=== PATIENT | male | born 1960 | race Caucasian/White ===

== ENCOUNTER 2017-03-20 13:15 | Inpatient (IN) | payer BC ==
[~2017-03-20] VITALS: Ht 170.2 cm; Wt 78.0 kg
[2017-03-20 13:34] VITALS: BP_SYST 121
[2017-03-20 14:07] LABS: BASOPHILS # (AUTO) 0.3 K/uL (0.0-0.2); BASOPHILS % (AUTO) 1.9 % (0.0-2.0); HEMATOCRIT 42.2 % (36-54); HEMOGLOBIN 14.1 g/dL (14.0-18.0); LYMPHOCYTES # (AUTO) 1.4 K/uL (1.0-5.5); LYMPHOCYTES % (AUTO) 9.7 % (20.5-51.5); MEAN CORPUSCULAR HEMOGLOBIN 29 pg (27-31); MEAN CORPUSCULAR HGB CONC 33 % (32-36); MEAN CORPUSCULAR VOLUME 86 fL (79.0-98.0); MONOCYTES # (AUTO) 0.6 K/uL (0.0-1.0); MONOCYTES % (AUTO) 4.1 % (1.7-9.3); NEUTROPHILS # (AUTO) 11.8 K/uL (1.8-7.7); NEUTROPHILS % (AUTO) 84.3 % (40.0-70.0); PLATELET COUNT (AUTO) 152 K/uL (130-430); RED BLOOD CELL COUNT(AUTO) 4.88 MIL/uL (4.2-6.2); RED CELL DISTRIBUTION WIDTH 13.5 % (9.0-15.0); WHITE BLOOD COUNT (AUTO) 14.1 K/uL (4.8-10.8)
[2017-03-20 14:20] LABS: CALCIUM 8.1 mg/dL (8.4-11.0); CREATININE 1.31 mg/dL (0.55-1.30); POTASSIUM 3.5 mmol/L (3.5-5.1)
[2017-03-20 14:24] LABS: ALBUMIN 3.6 g/dL (3.4-4.8); TOTAL BILIRUBIN 0.6 mg/dL (0.0-1.0); TOTAL PROTEIN, SERUM 7.6 g/dL (6.4-8.3)
--- NOTE | 2017-03-20 14:50 | NUR ---
Note araceli in EDM - 03/20/17 at 1817 by ABHI Patient will be admitted to care of . Admitted to TELEMETERY unit. Will go to room 128A. Belongings list completed. Summary report printed. Report will be given at bedside.
[2017-03-20] MEDS ORDERED: DEXAMETHASONE SOD PHOSPHATE 10 MG/ML VIAL IVP ONE (15:15)
[2017-03-20] MEDS ORDERED: LOPERAMIDE HCL 2 MG CAPSULE PO ONE (15:15)
[2017-03-20] MEDS ORDERED: metroNIDAZOLE 500 mg/NS 100 ML IV ONE (15:15)
[2017-03-20] MEDS ORDERED: NACL 0.9% 1,000 ML IV ONE ×2 (15:30→17:30)
--- NOTE | 2017-03-20 15:30 | NUR ---
RECEIVED PT IN BED 1, ASSUMED CARE.
--- NOTE | 2017-03-20 15:32 | NUR ---
ER at bedside examining patient.
--- NOTE | 2017-03-20 15:45 | NUR ---
# 20 gauge angiocath placed to RA. Use of asceptic technique. Opsite placed over site. Blood return noted. Flushed with 10 cc of normal saline. No evidence of infiltration noted. PT MEDICATED TOLERATED WELL
--- NOTE | 2017-03-20 16:17 | NUR ---
ADMISSION NOTE Received patient from ER via juana, received report from Lonnie ROCHE. Patient admitted with diagnosis of Colitis . Patient oriented to hospital routine, call light, toileting and safety-patient verbalized understanding.
--- NOTE | 2017-03-20 16:30 | NUR ---
Patient will be admitted to care of . Admitted to telemetry unit. Will go to room 128a. Belongings list completed. Summary report printed. Report will be given at bedside.
[2017-03-20 16:37] VITALS: BP_SYST 121
--- NOTE | 2017-03-20 16:59 | NUR ---
PAGEJohn SPOKE WITH ANASTASIYA TO PAGE DR STEPHENSON PER RN SENA.
[2017-03-20] MEDS ORDERED: BISACODYL 5 MG TABLET.DR (DULCOLAX) PO ONE (17:00)
--- NOTE | 2017-03-20 17:00 | NUR ---
INITIAL NOTE Received pt in bed, no s/s of distress or sob noted, pt has no c/o pain at this time, pt in stable condition, pt aaox4, verbal. Bed at lowest position, call light within reach, will continue to monitor pt for any changes, fall precautions in place.
[2017-03-20] MEDS ORDERED: ONDANSETRON HCL 4 MG/2 ML VIAL IVP PRN (17:30)
--- NOTE | 2017-03-20 17:47 | NUR ---
MD CURRY SPOKE WITH SABINA TO PAGE DR STEPHENSON PER KALEY JARRELL
[2017-03-20] MEDS ORDERED: GOLYTELY / COLYTE SOLUTION 4 LITERS PO ONE (18:00)
--- NOTE | 2017-03-20 18:28 | NUR ---
CLOSING NOTE Pt in bed, no s/s of distress or sob noted, pt has no c/o pain at this time, pt in stable condition, pt aaox4, verbal. Bed at lowest position, call light within reach, will endorse care of pt to incoming nurse, fall precautions in place. Sent stool to lab for tests as ordered, started golytely as ordered.
[2017-03-20 20:00] VITALS: BP_SYST 134
--- NOTE | 2017-03-20 20:00 | NUR ---
PM Shift Assessment Received patient lying in bed, AAO x4, no acute distress noted, is at the bedside. Assessment complete, no complain of pain at this time. Patient is drinking GoLYTELY and tolerating well. IV noted to right AC, IV fluids bolus infusing well, no redness or swelling noted to IV sight. Plan of care discussed with patient and at bedside, they verbalized understanding. Patient is verbally able to make needs known and encouraged to do so. Call light is within reach, all fall and safety precautions in place, will continue to monitor for change in patient status.
[2017-03-20 21:15] VITALS: BP_SYST 145
[2017-03-20] MEDS: metroNIDAZOLE 500 mg/NS 100 ML IV SCH (21:33)
--- NOTE | 2017-03-20 21:50 | NUR ---
Consult was called Reason For Consultation: GI Was person notified: Kelley Was consult called: yes Consulting Physician: DR. ROCK caponizer Supervisor Contact Lens Specialty: Supervisor Contact Lens
--- NOTE | 2017-03-20 22:18 | NUR ---
RN Rounds Patient is resting quietly in bed, no acute distress noted or complain of pain at this time. Tolerating GoLYTELY well, stated he has had a few bowel movements. Scheduled IV antibiotics administered and infusing well. Encouraged to call with all needs. Call light is within reach, all fall and safety precautions in place, will continue to monitor.
[2017-03-21 00:02] VITALS: BP_SYST 143
--- NOTE | 2017-03-21 00:27 | NUR ---
RN Rounds Patient is resting quietly in bed, no acute distress noted or complain of pain at this time, vital sings stable, family members at the bedside. Patient noted ambulatory with steady gait to restroom and safely back to bed. Reminded of NPO for colonoscopy in the morning, he verbalized understanding. Encouraged to call with all needs. Call light is within reach, all fall and safety precautions in place, will continue to monitor.
--- NOTE | 2017-03-21 02:25 | NUR ---
RN Rounds Patient is resting quietly in bed, no acute distress noted, daughter is at the bedside. Reminded to call for assistance if he needs to get out of bed, he verbalized understanding. No other needs at this time. Call light is within reach, all fall and safety precautions in place, will continue to monitor.
[2017-03-21 04:14] VITALS: BP_SYST 143
--- NOTE | 2017-03-21 04:32 | NUR ---
RN Rounds Patient is resting quietly in bed, no acute distress noted or complain of pain at this time. Family members at the bedside. Encouraged patient to call with all needs, he verbalized understanding. Call light is within reach, all fall and safety precautions in place, will continue to monitor.
[2017-03-21] MEDS: metroNIDAZOLE 500 mg/NS 100 ML IV SCH ×3 (05:28→22:04)
--- NOTE | 2017-03-21 06:39 | NUR ---
Closing Notes Patient is resting quietly in bed, no acute distress noted. Tap water enema done x1, patient tolerated well and is now clear. IV antibiotics infusing well as ordered per MD. Patient is stable, all needs met throughout shift. Will continue to monitor until endorsed to AM nurse at bedside.
[2017-03-21 08:00] VITALS: BP_SYST 130
--- NOTE | 2017-03-21 08:00 | NUR ---
am notes Pt in bed awake, alert and oriented. denies any pain or discomfort. ambulate to the bathroom with steady gait. keep npo for colonoscopy today. call light in reach. enc. to call for help as needed.
[2017-03-21] MEDS: PANTOPRAZOLE SODIUM 40 MG/VIAL (PROTONIX) IVP SCH (08:41)
--- NOTE | 2017-03-21 10:30 | NUR ---
ROUNDS IN BED RESTING. DENIES ANY PAIN OR DISCOMFORT. KEEP NPO. STABLE.
[2017-03-21 10:43] LABS: BASOPHILS % (AUTO) 0.2 % (0.0-2.0); HEMATOCRIT 38.9 % (36-54); LYMPHOCYTES # (AUTO) 0.6 K/uL (1.0-5.5); LYMPHOCYTES % (AUTO) 4.4 % (20.5-51.5); MEAN CORPUSCULAR HEMOGLOBIN 29 pg (27-31); MEAN CORPUSCULAR HGB CONC 34 % (32-36); MEAN CORPUSCULAR VOLUME 86 fL (79.0-98.0); MONOCYTES # (AUTO) 0.4 K/uL (0.0-1.0); MONOCYTES % (AUTO) 3.4 % (1.7-9.3); NEUTROPHILS # (AUTO) 12.1 K/uL (1.8-7.7); PLATELET COUNT (AUTO) 141 K/uL (130-430); RED BLOOD CELL COUNT(AUTO) 4.49 MIL/uL (4.2-6.2); RED CELL DISTRIBUTION WIDTH 13.5 % (9.0-15.0); WHITE BLOOD COUNT (AUTO) 13.1 K/uL (4.8-10.8)
[2017-03-21 10:47] LABS: CALCIUM 8.1 mg/dL (8.4-11.0); CREATININE 0.96 mg/dL (0.55-1.30); POTASSIUM 3.3 mmol/L (3.5-5.1)
[2017-03-21 12:00] VITALS: BP_SYST 133
[2017-03-21] MEDS ORDERED: MIDAZOLAM HCL 5 MG/5 ML VIAL ONE (12:32)
[2017-03-21] MEDS ORDERED: SIMETHICONE 40 MG/0.6 ML ML ONE (12:32)
[2017-03-21] MEDS ORDERED: MEPERIDINE HCL/PF 100 MG/ML AMP ONE (12:32)
[2017-03-21] MEDS: MIDAZOLAM HCL 5 MG/5 ML VIAL ONE ×4 (12:51→13:00)
--- NOTE | 2017-03-21 13:51 | NUR ---
notes Pt back from gi lab, pt awake alert and oriented. family at bedside. no distress noted.
--- NOTE | 2017-03-21 14:50 | NUR ---
Discharge planning Discussed plan of care with TAHIR Bejarano @ [facility], , who states that patient is OON. Bia said she has spoken directly with Dr Kuhn and plan is for DC home tomorrow. If patient needs continued inpatient stay beyond tomorrow then Insurance will choose to transfer in-network. Met with patient at bedside and updated him with plan of care. Patient verbalized understanding.
[2017-03-21 16:00] VITALS: BP_SYST 139
--- NOTE | 2017-03-21 16:55 | NUR ---
LABS CALLED AND SPOKE TO DR. STEPHENSON. MADE AWARE OF LABS RESULT. NEW ORDERS RECEIVED.
[2017-03-21] MEDS ORDERED: POTASSIUM CHLORIDE 20 MEQ TAB.PRT.SR PO ONE (17:00)
--- NOTE | 2017-03-21 18:21 | NUR ---
NOTES PT IN BED AWAKE, EATING DINNER. TOLERATING FULL LIQUID DIET. DENIES ANY N/V, ABDOMINAL PAIN AT THIS TIME. ALL NEEDS MEET. WILL ENDORSE
--- NOTE | 2017-03-21 19:50 | NUR ---
ROUNDS PATIENT IN BED, WATCHING TV, VITALS STABLE, NO PAIN AND DISCOMFORT AT THIS TIME. ASSESSMENT DONE AND DOCUMENTED. SEE FLOWSHEET. NEEDS ATTENDED TO. SAFETY MEASURES IN PLACED. BED IN LOW AND LOCKED POSITION. CALL LIGHT PLACED WITHIN REACH.
--- NOTE | 2017-03-21 21:15 | NUR ---
DR. SEEMA STEPHENSON HERE AND SAW PATIENT WITH NEW ORDERS. WILL CONTINUE TO MONITOR.
[2017-03-22] VITALS (7 sets, daily range): BP systolic 121–136
--- NOTE | 2017-03-22 00:10 | NUR ---
PATIENT RESTING: Patient resting quietly. No acute distress noted. Vital signs within normal range.
--- NOTE | 2017-03-22 02:15 | NUR ---
ROUNDS PATIENT ASLEEP, NO SOB NOTED, WILL CONTINUE TO MONITOR.
--- NOTE | 2017-03-22 04:41 | NUR ---
PATIENT RESTING: Patient resting quietly. No acute distress noted. Vital signs within normal range.
[2017-03-22] MEDS: metroNIDAZOLE 500 mg/NS 100 ML IV SCH ×2 (06:18→14:06)
[2017-03-22 06:34] LABS: CALCIUM 8.3 mg/dL (8.4-11.0); CREATININE 0.96 mg/dL (0.55-1.30); POTASSIUM 3.7 mmol/L (3.5-5.1); TOTAL BILIRUBIN 0.3 mg/dL (0.0-1.0); TOTAL PROTEIN, SERUM 6.3 g/dL (6.4-8.3)
[2017-03-22 06:44] LABS: BASOPHILS % (AUTO) 0.1 % (0.0-2.0); EOSINOPHILS % (AUTO) 0.1 % (0.0-4.0); HEMATOCRIT 36.5 % (36-54); HEMOGLOBIN 12.3 g/dL (14.0-18.0); LYMPHOCYTES # (AUTO) 1.5 K/uL (1.0-5.5); LYMPHOCYTES % (AUTO) 10.5 % (20.5-51.5); MEAN CORPUSCULAR HEMOGLOBIN 29 pg (27-31); MEAN CORPUSCULAR HGB CONC 34 % (32-36); MEAN CORPUSCULAR VOLUME 87 fL (79.0-98.0); MONOCYTES # (AUTO) 0.9 K/uL (0.0-1.0); MONOCYTES % (AUTO) 6.4 % (1.7-9.3); NEUTROPHILS # (AUTO) 12.2 K/uL (1.8-7.7); NEUTROPHILS % (AUTO) 82.9 % (40.0-70.0); PLATELET COUNT (AUTO) 134 K/uL (130-430); RED BLOOD CELL COUNT(AUTO) 4.19 MIL/uL (4.2-6.2); RED CELL DISTRIBUTION WIDTH 13.4 % (9.0-15.0); WHITE BLOOD COUNT (AUTO) 14.6 K/uL (4.8-10.8)
--- NOTE | 2017-03-22 06:50 | NUR ---
CLOSING NOTES PATIENT AWAKE, VITALS STABLE, ALL NEEDS ATTENDED TO. SAFETY MEASURES MAINTAINED. CALL LIGHT PLACED WITHIN REACH.
--- NOTE | 2017-03-22 07:45 | NUR ---
initial notes: pt on bed resting. stable. i.v. access in placed. discussed plan of care. call light within reach.
--- NOTE | 2017-03-22 09:24 | NUR ---
Nonprofit Financial Controller Note Lise HARO notified L[employer]RICIAN that patient has requested a note that he has been hospitalized for his work. L[employer] VOL[employer] ELECTRICIAN provided patient with letter.
[2017-03-22] MEDS: PANTOPRAZOLE SODIUM 40 MG/VIAL (PROTONIX) IVP SCH (09:38)
--- NOTE | 2017-03-22 09:41 | NUR ---
rounds: pt on bed resting. no distress noted.
--- NOTE | 2017-03-22 13:34 | NUR ---
Communication to : Informed Bettye, pt . pt is discharge and she can pick him up. Addendum: 03/22/17 at 1435 by Chayo Riley RN wrong chart
[2017-03-22] MEDS ORDERED: LEVOFLOXACIN 500 MG/D5W 100 ML IV SCH (14:00)
--- NOTE | 2017-03-22 14:37 | NUR ---
rounds: pt on bed. no distress noted.
[2017-03-22 15:41] LABS: BASOPHILS # (AUTO) 0.1 K/uL (0.0-0.2); BASOPHILS % (AUTO) 0.6 % (0.0-2.0); EOSINOPHILS % (AUTO) 0.3 % (0.0-4.0); HEMATOCRIT 36.3 % (36-54); HEMOGLOBIN 12.3 g/dL (14.0-18.0); LYMPHOCYTES # (AUTO) 2.6 K/uL (1.0-5.5); LYMPHOCYTES % (AUTO) 21.6 % (20.5-51.5); MEAN CORPUSCULAR HEMOGLOBIN 30 pg (27-31); MEAN CORPUSCULAR HGB CONC 34 % (32-36); MEAN CORPUSCULAR VOLUME 87 fL (79.0-98.0); MONOCYTES # (AUTO) 0.8 K/uL (0.0-1.0); MONOCYTES % (AUTO) 6.5 % (1.7-9.3); NEUTROPHILS # (AUTO) 8.5 K/uL (1.8-7.7); PLATELET COUNT (AUTO) 149 K/uL (130-430); RED BLOOD CELL COUNT(AUTO) 4.16 MIL/uL (4.2-6.2); RED CELL DISTRIBUTION WIDTH 13.8 % (9.0-15.0)
--- NOTE | 2017-03-22 16:21 | NUR ---
rounds: pt went out for a walk earlier. back in his room and resting. stable.
--- NOTE | 2017-03-22 18:00 | NUR ---
D/C Patient Patient given medication reconciliation form and D/C instructions. Exit Care provided. Patient verbalized understanding. MD discussed with patient the results and treatment provided. Ambulatory with steady gait for discharge to home. Patient in stable condition, ID band removed. IV catheter removed, intact and dressing applied, no active bleeding. Rx given. Patient educated on pain management. All belongings sent with patient.
== END 2017-03-22 18:00 | disposition home or self-care (01) | DRG 871 ==
LOC: SED 13:15 → SMU 15:56
PROVIDERS: ADMIT Internal Medicine; ATTEND Internal Medicine
PROC: 0DBM8ZX Excision of Descending Colon, Via Natural or Artificial Opening Endoscopic, Diagnostic (ICD-10-PCS; 2017-03-21)
PROC: 0DBH8ZX Excision of Cecum, Via Natural or Artificial Opening Endoscopic, Diagnostic (ICD-10-PCS; principal; 2017-03-21 14:00)
PROC: 0DBP8ZX Excision of Rectum, Via Natural or Artificial Opening Endoscopic, Diagnostic (ICD-10-PCS; 2017-03-21 14:00)
DX: A41.9 Sepsis, unspecified organism (principal); N17.0 Acute kidney failure with tubular necrosis; E87.1 Hypo-osmolality and hyponatremia; K52.9 Noninfective gastroenteritis and colitis, unspecified; I10 Essential (primary) hypertension; K63.5 Polyp of colon; F17.210 Nicotine dependence, cigarettes, uncomplicated; K57.90 Diverticulosis of intestine, part unspecified, without perforation or abscess without bleeding; K62.1 Rectal polyp; K64.8 Other hemorrhoids
CPT/HCPCS: 36415; 45380; 45384; 80048; 80053; 83605; 83690-TC; 85025; 87040-TC; 87045-TC; 87046; 87177; 87230-TC; 88305; 96374; 99285; C9113; J1100; J1956; J2175; J2250; J3490; J7030; J7050